=== PATIENT | male | born 1960 | race African-American/Black ===

== ENCOUNTER 2020-01-17 08:14 | Emergency (ER) | payer MEDICARE, MEDICAID ==
[~2020-01-17] VITALS: Ht 180.3 cm; Wt 88.6 kg
--- NOTE | 2020-01-17 09:16 | PHYS DOC ---
Adult General Chief Complaint Chief Complaint: DIARRHEA HPI HPI Patient is a 59 year old male who presents with upper respiratory symptoms for the last week. Patient states that he started to have some bloody stools 2 week ago, which lasted 1 day. States he has not had any further episodes since that time. States he is continued has some soft stool, with 12 episodes of diarrhea each day. Denies any purulence, denies any blood in his stools. Denies abdominal pain. Does report he has had heavy EtOH use for the last several years. States last drink was yesterday. States he's had some sinus congestion and a cough for the last week as well, he had taken Benadryl last night but nothing else. Denies any shortness of breath, denies any dizziness, denies any chest pain, denies any abdominal pain, denies any vomiting or nausea. Review of Systems Review of Systems Constitutional: Denies fever or chills [] HENT: Reports nasal congestion denies sore throat [] Respiratory: Reports cough denies shortness of breath [] Cardiovascular: No additional information not addressed in HPI [] GI: Denies abdominal pain, nausea, vomiting, reports 1 episode of bloody stool 2 weeks ago, reports diarrhea for the last week as well.[] : Denies dysuria or hematuria [] Musculoskeletal: Denies back pain or joint pain [] Integument: Denies rash or skin lesions [] Neurologic: Denies headache, focal weakness or sensory changes [] Endocrine: Denies polyuria or polydipsia [] All other systems were reviewed and found to be within normal limits, except as documented in this note. Allergies Allergies Allergies Coded Allergies Type Severity Reaction Last Updated Verified lorazepam Allergy Severe Anaphylaxis 01/17/20 Yes morphine Allergy Mild hives 01/17/20 Yes Physical Exam Physical Exam Constitutional: Well developed, well nourished, no acute distress, non-toxic appearance. [] HENT: Normocephalic, atraumatic, bilateral external ears normal, oropharynx moist, no oral exudates, nose normal. Tonsils 0 [] Eyes: PERRLA, EOMI, conjunctiva normal, no discharge. [] Neck: Normal range of motion, no tenderness, supple, no stridor. [] Cardiovascular:Heart rate regular rhythm, no murmur [] Lungs & Thorax: Bilateral breath sounds clear to auscultation [] Abdomen: Bowel sounds normal, soft, no tenderness, no masses, no pulsatile faisal s. Minimal hepatomegaly noted [] Skin: Warm, dry, no erythema, no rash. [] Back: No tenderness, no CVA tenderness. [] Extremities: No tenderness, no cyanosis, no clubbing, ROM intact, no edema. [] Neurologic: Alert and oriented X 3, normal motor function, normal sensory function, no focal deficits noted. [] Psychologic: Affect normal, judgement normal, mood normal. [] Current Patient Data Vital Signs Vital Signs Date Time Temp Pulse Resp B/P (MAP) Pulse Ox O2 Delivery O2 Flow Rate FiO2 01/17/20 08:55 98.3 89 18 163/98 (119) 96 Room Air 98.3 Lab Values Laboratory Tests Test 01/17/20 09:25 White Blood Count 4.4 x10^3/uL (4.0-11.0) Red Blood Count 3.84 x10^6/uL (4.30-5.70) L Hemoglobin 12.7 g/dL (13.0-17.5) L Hematocrit 37.4 % (39.0-53.0) L Mean Corpuscular Volume 97 fL (79-100) Mean Corpuscular Hemoglobin 33 pg (25-35) Mean Corpuscular Hemoglobin Concent 34 g/dL (31-37) Red Cell Distribution Width 13.5 % (11.5-14.5) Platelet Count 140 x10^3/uL (140-400) Neutrophils (%) (Auto) 61 % (31-73) Lymphocytes (%) (Auto) 22 % (24-48) L Monocytes (%) (Auto) 17 % (0-9) H Eosinophils (%) (Auto) 0 % (0-3) Basophils (%) (Auto) 0 % (0-3) Neutrophils # (Auto) 2.7 x10^3/uL (1.8-7.7) Lymphocytes # (Auto) 1.0 x10^3/uL (1.0-4.8) Monocytes # (Auto) 0.7 x10^3/uL (0.0-1.1) Eosinophils # (Auto) 0.0 x10^3/uL (0.0-0.7) Basophils # (Auto) 0.0 x10^3/uL (0.0-0.2) Sodium Level 140 mmol/L (136-145) Potassium Level 3.3 mmol/L (3.5-5.1) L Chloride Level 101 mmol/L (98-107) Carbon Dioxide Level 29 mmol/L (21-32) Anion Gap 10 (6-14) Blood Urea Nitrogen 13 mg/dL (8-26) Creatinine 0.9 mg/dL (0.7-1.3) Estimated GFR (Cockcroft-Gault) 104.2 BUN/Creatinine Ratio 14 (6-20) Glucose Level 103 mg/dL (70-99) H Calcium Level 9.0 mg/dL (8.5-10.1) Total Bilirubin 0.8 mg/dL (0.2-1.0) Aspartate Amino Transferase (AST) 50 U/L (15-37) H Alanine Aminotransferase (ALT) 50 U/L (16-63) Alkaline Phosphatase 65 U/L (46-116) Troponin I Quantitative 0.035 ng/mL (0.000-0.055) Total Protein 7.0 g/dL (6.4-8.2) Albumin 3.2 g/dL (3.4-5.0) L Albumin/Globulin Ratio 0.8 (1.0-1.7) L Lipase 123 U/L (73-393) Ethyl Alcohol Level < 10 mg/dL (0-10) Laboratory Tests 01/17/20 09:25 Laboratory Tests 01/17/20 09:25 EKG EKG [] Radiology/Procedures Radiology/Procedures PA and Lateral Chest radiographs 01/17/2020 CLINICAL HISTORY: Cough for one to 2 weeks. PA and lateral digital radiographs of the chest were obtained. No previous studies are available for comparison. The cardiac silhouette is mildly enlarged. The thoracic aorta is mildly tortuous. Mild degenerative changes are seen involving the thoracic spine and both shoulders. IMPRESSION: No acute abnormality is seen. Electronically signed by: Robin Flannery MD (01/17/2020 9:51 AM) [id number] [] Course & Med Decision Making Course & Med Decision Making Pertinent Labs and Imaging studies reviewed. (See chart for details) []Discussed findings with patient and family, patient ports easily on better at this time, patient and. Family reports they were concerned this patient has not had his Risperdal for 3 years, and was wondering if he needs to start that again. Advised patient and family that they need to contact his primary care to restart this, as restarting a mental health medication the patient has been off of for the last 3 years for a patient emergency room is not appropriate. Discu ssed continue to rest, nutrition. Decreased alcohol use. Family reports they have primary care provider at [facility], however they have not contacted patient to set up any appointments. Dragon Disclaimer Dragon Disclaimer This electronic medical record was generated, in whole or in part, using a voice recognition dictation system. Departure Departure Impression: Primary Impression: Diarrhea Additional Impression: Hypokalemia Disposition: 01 HOME, SELF-CARE Condition: STABLE Referrals: UNKNOWN PCP NAME (PCP) Patient Instructions: Diarrhea Additional Instructions: As we discussed, try to get into his primary care at [facility] to determine if they want to restart him on the medication you discussed. Try to give him a bland diet over the next couple days, making sure he continues to eat well and stay hydrated. Problem Qualifiers Primary Impression: Diarrhea Diarrhea type: unspecified type Qualified Codes: R19.7 - Diarrhea, unspecified EVELIA LOMAX APRN Jan 17, 2020 09:16
[2020-01-17 09:37] LABS: BASO % 0 % (0-3); EOS % 0 % (0-3); HEMATOCRIT 37.4 % (39.0-53.0); HEMOGLOBIN 12.7 g/dL (13.0-17.5); LYMPH % 22 % (24-48); MEAN CORPUSCULAR HEMOGLOBIN 33 pg (25-35); MEAN CORPUSCULAR HGB CONC 34 g/dL (31-37); MEAN CORPUSCULAR VOLUME 97 fL (79-100); MONO # 0.7 x10^3/uL (0.0-1.1); MONO % 17 % (0-9); NEUT # 2.7 x10^3/uL (1.8-7.7); NEUT % 61 % (31-73); PLATELET COUNT 140 x10^3/uL (140-400); RED BLOOD COUNT 3.84 x10^6/uL (4.30-5.70); RED CELL DISTRIBUTION WIDTH 13.5 % (11.5-14.5); WHITE BLOOD COUNT 4.4 x10^3/uL (4.0-11.0)
[2020-01-17 09:47] LABS: CREATININE 0.9 mg/dL (0.7-1.3); GFR 104.2; POTASSIUM 3.3 mmol/L (3.5-5.1)
[2020-01-17 09:53] LABS: ALBUMIN 3.2 g/dL (3.4-5.0); ALBUMIN/GLOBULIN RATIO 0.8 (1.0-1.7); TOTAL BILIRUBIN 0.8 mg/dL (0.2-1.0)
--- NOTE | 2020-01-17 09:54 | RAD ---
PA and Lateral Chest radiographs 01/17/2020 CLINICAL HISTORY: Cough for one to 2 weeks. PA and lateral digital radiographs of the chest were obtained. No previous studies are available for comparison. The cardiac silhouette is mildly enlarged. The thoracic aorta is mildly tortuous. Mild degenerative changes are seen involving the thoracic spine and both shoulders. IMPRESSION: No acute abnormality is seen. Electronically signed by: Robin Flannery MD (01/17/2020 9:51 AM) [id number]
[2020-01-17 10:20] VITALS: BP 149/100
[2020-01-17] MEDS ORDERED: POTASSIUM CHLORIDE 20 MEQ TABLET.ER. PO ONE (10:30)
== END 2020-01-17 10:44 | disposition home or self-care (01) ==
LOC: ER 08:14
DX: R19.7 Diarrhea, unspecified (principal); E87.6 Hypokalemia; K92.1 Melena; R09.81 Nasal congestion; Z88.5 Allergy status to narcotic agent; Z88.8 Allergy status to other drugs, medicaments and biological substances
CPT/HCPCS: 36415; 71046; 80053; 83690; 84484; 85025; 99284; G0480

== ENCOUNTER 2021-04-21 09:10 | Emergency (ER) | payer MEDICARE, OTHER ==
[~2021-04-21] VITALS: Ht 175.3 cm; Wt 96.7 kg
--- NOTE | 2021-04-21 10:15 | RAD ---
AP chest x-ray HISTORY: Chest pain. FINDINGS: Heart size upper limits normal. There is tortuosity of the thoracic aortic arch which is st able to prior study. No pneumothorax, pulmonary opacities or pleural effusions. Bones are unremarkabl e. IMPRESSION: No acute process. Stable exam. Electronically signed by: Christiano Burrell MD (04/21/2021 10:12 AM) [id number]
[2021-04-21 10:21] LABS: CREATININE 1.1 mg/dL (0.7-1.3); GFR 82.3; POTASSIUM 3.4 mmol/L (3.5-5.1)
[2021-04-21 10:24] LABS: BASO % 0 % (0-3); EOS % 1 % (0-3); HEMATOCRIT 40.3 % (39.0-53.0); HEMOGLOBIN 13.6 g/dL (13.0-17.5); LYMPH # 1.5 x10^3/uL (1.0-4.8); LYMPH % 19 % (24-48); MEAN CORPUSCULAR HEMOGLOBIN 32 pg (25-35); MEAN CORPUSCULAR HGB CONC 34 g/dL (31-37); MEAN CORPUSCULAR VOLUME 95 fL (79-100); MONO # 1.1 x10^3/uL (0.0-1.1); MONO % 14 % (0-9); NEUT # 5.2 x10^3/uL (1.8-7.7); NEUT % 66 % (31-73); PLATELET COUNT 194 x10^3/uL (140-400); RED BLOOD COUNT 4.24 x10^6/uL (4.30-5.70); RED CELL DISTRIBUTION WIDTH 14.8 % (11.5-14.5); WHITE BLOOD COUNT 7.9 x10^3/uL (4.0-11.0)
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
[2021-04-21 10:27] LABS: ALBUMIN 3.7 g/dL (3.4-5.0); ALBUMIN/GLOBULIN RATIO 0.8 (1.0-1.7); MAGNESIUM 1.7 mg/dL (1.8-2.4); TOTAL BILIRUBIN 0.7 mg/dL (0.2-1.0); TOTAL PROTEIN 8.2 g/dL (6.4-8.2)
[2021-04-21] MEDS ORDERED: HYDROcodone/APAP 5/325MG 1 TAB TABLET PO ONE (10:30)
[2021-04-21] MEDS ORDERED: CLIN150C15 PO (10:57)
[2021-04-21] MEDS ORDERED: NAPR-514 PO (10:57)
[2021-04-21] MEDS ORDERED: LISI10TA16 PO (11:02)
[2021-04-21 11:11] VITALS: BP 168/112
[2021-04-21] MEDS ORDERED: LISINOPRIL 10 MG TABLET PO ONE (11:15)
--- NOTE | 2021-04-21 19:04 | EKG ---
[facility] [address] [place] [address] Test Date: 2021-04-21 Test Time: 09:57:01 Pat Name: JERRY KUMAR Department: Room: Gender: M Carpenter Assistant: : 1960 Requested By: SUSAN LOJA Order Number: [id number] Reading MD: Measurements Intervals [place] Rate: 84 P: 41 CT: 164 QRS: -34 QRSD: 92 T: -75 QT: 412 QTc: 490 Interpretive Statements SINUS RHYTHM ATRIAL PREMATURE COMPLEX(ES) ABNORMAL LEFT AXIS DEVIATION LEFT ANTERIOR FASCICULAR BLOCK CONSIDER LEFT VENTRICULAR HYPERTROPHY T ABNORMALITY IN ANTERIOR LEADS INFEROLATERAL LEADS PROLONGED QT ABNORMAL ECG RI6.01 No previous ECG available for comparison
== END 2021-04-21 11:15 | disposition home or self-care (01) ==
LOC: ER 09:10
DX: I49.9 Cardiac arrhythmia, unspecified (principal); I11.0 Hypertensive heart disease with heart failure; I50.9 Heart failure, unspecified; F41.9 Anxiety disorder, unspecified; F17.200 Nicotine dependence, unspecified, uncomplicated; F10.20 Alcohol dependence, uncomplicated; Y90.9 Presence of alcohol in blood, level not specified; Z88.5 Allergy status to narcotic agent; Z88.8 Allergy status to other drugs, medicaments and biological substances
CPT/HCPCS: 36415; 71045; 80053; 82553; 83690; 83735; 84484; 85025; 93005; 99285-25